=== PATIENT | male | born 1975 | race Caucasian/White ===

== ENCOUNTER 2023-11-28 13:32 | Outpatient (CLI) | payer SELFPAY ==
[2023-11-28 14:04] LABS: HF Add Manual Diff No
[2023-11-28 14:06] LABS: Basophils # 0.1 10^3/uL (0.0-0.1); Basophils % 0.9 %; Eosinophils # 0.2 10^3/uL (0.0-0.8); Hematocrit 47.4 % (37-53); Lymphocytes # 2.7 10^3/uL (0.8-4.8); Lymphocytes % 34.1 %; Mean Corpuscular HGB Conc 35.2 g/dL (30-55); Mean Corpuscular Hemoglobin 28.8 pg (27-33); Mean Corpuscular Volume 81.7 fl (82-101); Mean Platelet Volume 10.9 fL (7.4-10.4); Monocytes # 0.6 10^3/uL (0.2-0.9); Monocytes % 8.1 %; Neutrophils # 4.15 10^3/uL (1.8-7.7); Neutrophils % 53.5 %; Nucleated Red Blood Cells % 0 %; Platelet Count 269 10^3/cmm (157-399); White Blood Count 7.76 10^3/uL (3.29-11.43)
[2023-11-28 14:44] LABS: 25 Hydroxy Vitamin D 35 ng/mL (30-100); Alanine Aminotransferase 43 U/L (0-41); Albumin Level 4.6 g/dL (3.5-5.2); Alkaline Phosphatase 65 U/L (40-130); Anion Gap 14.9 (5-19); Aspartate Amino Transferase 19 U/L (0-40); Blood Urea Nitrogen 14 mg/dL (6-20); Calcium 9.7 mg/dL (8.5-10.5); Carbon Dioxide 26 mmol/L (22-29); Chloride 102 mmol/L (98-107); Chol HDL Ratio 5.91 mg/dL (1.0-5.00); Cholesterol 207 mg/dL (0-200); Globulin 2.8 g/dL (1.3-4.6); Glomerular Filtration Rate 80.4 mL/min (90-130); Glucose 95 mg/dL (65-115); HDL Cholesterol 35 mg/dL (60-100); LDL Cholesterol Calculated 113 mg/dL (50-129); LDL HDL Ratio 3.23 RATIO (0.00-3.22); Osmolality Calculated 288 mOsm/kg (285-295); Potassium 3.9 mmol/L (3.5-5.1); Prostate Specific Antigen Scr 0.77 ng/mL (0-4); Sodium 139 mmol/L (136-145); Thyroid Stimulating Hormone 1.73 uIU/mL (0.27-4.20); Total Bilirubin 0.3 mg/dL (0.15-1.2); Total Protein 7.4 g/dL (6.6-8.7); Triglycerides 295 mg/dL (0-150)
[2023-11-28 15:13] LABS: Estmated Average Glucose 88; Hemoglobin A1C 4.7 % (4.0-6.0)
== END 2023-11-28 13:33 | disposition home or self-care (01) ==
LOC: LAB 13:35
PROVIDERS: Family Provider Family Medicine; PCP Family Medicine; Visit Provider Dermatology
DX: Z01.89 Encounter for other specified special examinations (principal)
CPT/HCPCS: 36415